=== PATIENT | male | born 1955 | race African-American/Black ===

== ENCOUNTER 2018-01-12 12:28 | Emergency (ER) | payer MEDICAID ==
[~2018-01-12] VITALS: Ht 172.7 cm; Wt 76.0 kg
[2018-01-12] MEDS ORDERED: IBUPROFEN 800MG TABLET PO ONE (13:30)
[2018-01-12] MEDS ORDERED: CYCLOBENZAPRINE 10MG TABLET PO ONE (14:30)
[2018-01-12] MEDS ORDERED: ACETAMINOPHEN WITH CODEINE 300/30MG TABLET PO ONE (14:30)
[2018-01-12 16:42] VITALS: BP 135/63
== END 2018-01-12 16:34 | disposition home or self-care (01) ==
LOC: ER 12:28
DX: M62.830 Muscle spasm of back (principal); M54.30 Sciatica, unspecified side; F17.200 Nicotine dependence, unspecified, uncomplicated
CPT/HCPCS: 99283; Z7610

== ENCOUNTER 2021-07-09 08:45 | Emergency (ER) | payer MEDICAID, OTHER ==
[~2021-07-09] VITALS: Ht 182.9 cm; Wt 77.0 kg
[2021-07-09 09:45] LABS: BASOPHILS % 0.3 % (0.0-2.0); EOSINOPHILS % 0.1 % (0.0-5.0); HEMATOCRIT. 48.7 % (42.0-52.0); HEMOGLOBIN. 16.9 g/dL (14.0-18.0); LYMPHOCYTES % 21.4 % (20.0-50.0); MEAN CORPUSCULAR VOLUME 92.1 fL (80.0-94.0); MEAN PLATELET VOLUME 7.7 fl (7.4-10.4); MONOCYTES % 10.9 % (2.0-8.0); NEUTROPHILS % 67.3 % (40.0-76.0); PLATELET 267 x1000/uL (130-400); RED BLOOD CELL COUNT 5.29 mill/uL (4.7-6.1)
[2021-07-09 09:54] LABS: CHLORIDE 100 mEq/L (98-107)
[2021-07-09 12:42] VITALS: BP 135/66
== END 2021-07-09 13:13 | disposition home or self-care (01) ==
LOC: ER 08:45
DX: G47.00 Insomnia, unspecified (principal); M54.30 Sciatica, unspecified side; F12.10 Cannabis abuse, uncomplicated
CPT/HCPCS: 36415; 80053; 85025; 99283

== ENCOUNTER 2021-10-10 11:49 | Emergency (ER) | payer MEDICAID ==
[~2021-10-10] VITALS: Ht 182.9 cm; Wt 80.0 kg
[2021-10-10 11:51] VITALS: BP 151/55
[2021-10-10] MEDS ORDERED: KETOROLAC 30MG/ML VIAL IM ONE (12:30)
[2021-10-10] MEDS ORDERED: CYCLOBENZAPRINE 10MG TABLET PO ONE (12:30)
[2021-10-10] MEDS ORDERED: CYCL7.5T25 MT (13:23)
[2021-10-10] MEDS ORDERED: NAPR-1176 MT (13:23)
== END 2021-10-10 14:18 | disposition home or self-care (01) ==
LOC: ER 11:59
DX: M25.511 Pain in right shoulder (principal); F12.10 Cannabis abuse, uncomplicated
CPT/HCPCS: 73030; 99283; J1885

== ENCOUNTER 2022-06-11 10:57 | Emergency (ER) | payer MEDICARE, MEDICAID ==
[~2022-06-11] VITALS: Ht 177.8 cm; Wt 95.0 kg
[~2022-06-11 10:57] MED LIST: CYCL7.5T25 MT; NAPR-1176 MT
[2022-06-11] MEDS ORDERED: IBUPROFEN 600MG TABLET PO STA (12:08)
[2022-06-11] MEDS ORDERED: NAPR-681 PO (13:18)
[2022-06-11] MEDS ORDERED: TRAM50TA3 PO (13:18)
[2022-06-11 13:57] VITALS: BP 116/75
== END 2022-06-11 13:59 | disposition home or self-care (01) ==
LOC: ER 10:57
DX: M79.671 Pain in right foot (principal); M72.2 Plantar fascial fibromatosis; M54.31 Sciatica, right side
CPT/HCPCS: 73630; 99283